=== PATIENT | male | born 2000 | race Caucasian/White ===

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

== ENCOUNTER 2022-06-07 15:54 | Emergency (ER) | payer OTHER ==
[2022-06-07 16:38] VITALS: BP 125/75; PULSE 71
== END 2022-06-07 17:12 | disposition home or self-care (01) ==
LOC: MW.ED 15:54
DX: S67.193A Crushing injury of left middle finger, initial encounter (principal); Z91.040 Latex allergy status; Z91.048 Other nonmedicinal substance allergy status; W23.1XXA Caught, crushed, jammed, or pinched between stationary objects, initial encounter
CPT/HCPCS: 73140-26-F2; 73140-F2; 99282; 99283

== ENCOUNTER 2023-03-06 08:42 | Emergency (ER) | payer BC, OTHER ==
[2023-03-06] MEDS ORDERED: Ondansetron 4 MG Tab.DIS PO ONE (09:27)
[2023-03-06] MEDS ORDERED: Acetaminophen 325 MG Tab PO ONE (09:27)
[2023-03-06] MEDS ORDERED: Ibuprofen 600 MG Tab PO ONE (09:27)
[2023-03-06 09:54] LABS: CORONAVIRUS COVID-19 NAA NEGATIVE (NEGATIVE); INFLUENZA A NAA NEGATIVE (NEGATIVE); INFLUENZA B NAA POSITIVE (NEGATIVE)
[2023-03-06 10:32] VITALS: BP 123/80; PULSE 76
== END 2023-03-06 10:31 | disposition home or self-care (01) ==
LOC: MW.ED 08:42
DX: J10.1 Influenza due to other identified influenza virus with other respiratory manifestations (principal); Z91.048 Other nonmedicinal substance allergy status; Z91.040 Latex allergy status; Z20.822 Contact with and (suspected) exposure to COVID-19
CPT/HCPCS: 0240U; 71046; 87651; 93005; 99284; A9270; 93010; 99283

== ENCOUNTER 2023-10-22 14:02 | Emergency (ER) | payer BC ==
[2023-10-22] MEDS ORDERED: Ondansetron 4 MG/2 ML SDV IVPUSH ONE (15:08)
[2023-10-22] MEDS ORDERED: Sodium Chloride 0.9% 1,000 ML IV ONE ×2 (15:08→16:42)
[2023-10-22] MEDS ORDERED: Ketorolac 30 MG/ML SDV IVPUSH ONE (15:08)
[2023-10-22 15:35] LABS: BASOPHILS ABSOLUTE AUTO 0.01 K/uL (0.00-0.20); BASOPHILS PERCENT AUTO 0.1 % (0.0-1.0); HEMATOCRIT 45.4 % (42.0-52.0); HEMOGLOBIN 16.6 g/dL (14.0-18.0); IMMATURE GRAN ABSOLUTE AUTO 0.02 K/uL (0.00-0.05); IMMATURE GRAN PERCENT AUTO 0.2 % (0.0-0.4); LYMPHOCYTES ABSOLUTE AUTO 0.96 K/uL (1.00-4.80); LYMPHOCYTES PERCENT AUTO 8.5 % (24.0-44.0); MEAN CORPUSCULAR HEMOGLOBIN 29.2 pg (28.0-32.0); MEAN CORPUSCULAR HGB CONC 36.6 g/dL (32.0-36.0); MEAN CORPUSCULAR VOLUME 79.8 fL (83.0-99.0); MEAN PLATELET VOLUME 9.1 fL (9.4-12.4); MONOCYTES ABSOLUTE AUTO 0.32 K/uL (0.00-0.80); MONOCYTES PERCENT AUTO 2.8 % (0.0-8.0); NEUTROPHILS ABSOLUTE AUTO 9.93 K/uL (1.80-7.70); NEUTROPHILS PERCENT AUTO 88.4 % (41.0-71.0); PLATELET COUNT,PLT 287 K/uL (150-400); RED BLOOD CELL COUNT 5.69 M/uL (4.52-5.90); WHITE BLOOD CELL COUNT,WBC 11.24 K/uL (3.9-11.3)
[2023-10-22 16:09] LABS: A/G RATIO 1.5 (0.9-1.6); ALBUMIN 5.3 g/dL (3.4-5.0); BILIRUBIN TOTAL 0.8 mg/dL (0.2-1.0); CALCIUM 9.8 mg/dL (8.5-10.1); CARBON DIOXIDE,CO2 27.8 mmol/L (21.0-32.0); CREATININE 1.2 mg/dL (0.8-1.3); EST CRCL DRUG DOSING (CG) 89.51 mL/min; POTASSIUM,K 3.9 mmol/L (3.5-5.1); PROTEIN TOTAL,TP 8.9 g/dL (6.4-8.2)
[2023-10-22 16:12] LABS: CORONAVIRUS COVID-19 NAA NEGATIVE (NEGATIVE); INFLUENZA A NAA NEGATIVE (NEGATIVE); INFLUENZA B NAA NEGATIVE (NEGATIVE)
[2023-10-22 18:54] VITALS: BP 122/61; PULSE 87
== END 2023-10-22 18:54 | disposition home or self-care (01) ==
LOC: MW.ED 14:02
DX: R11.2 Nausea with vomiting, unspecified (principal); F10.90 Alcohol use, unspecified, uncomplicated; Z91.048 Other nonmedicinal substance allergy status; Z91.040 Latex allergy status; Z20.822 Contact with and (suspected) exposure to COVID-19; Z86.16 Personal history of COVID-19
CPT/HCPCS: 0240U; 36415; 80053; 83690; 85025; 96361; 96374; 96375; 99284; J1885; J2405; J7030